=== PATIENT | female | born 1985 | race Two or more races ===

== ENCOUNTER 2021-11-15 15:10 | Outpatient (REF) | payer MEDICAID, SELFPAY ==
--- NOTE | 2021-11-15 15:27 | ECG_ITS ---
Test Reason : MED THERAPY Blood Pressure : / mmHG Vent. Rate : 075 BPM Atrial Rate : 075 BPM P-R Int : 146 ms QRS Dur : 084 ms QT Int : 356 ms P-R-T Axes : 000 036 020 degrees QTc Int : 397 ms Normal sinus rhythm Normal ECG No previous ECGs available Referred By: Court Keys Electronically Signed By:MARIBELL STEARNS MD
[2021-11-15 15:28] LABS: MANUAL DIFF FLAG NO
[2021-11-15 15:39] LABS: Basophils Percent Auto 0.6 % (0-2); Eosinophils Absolute Auto 0.1 X10*3/uL (0.0-0.4); Hematocrit 39.5 % (37.0-47.0); Hemoglobin 13.4 g/dl (12.0-16.0); Imm Gran Abs Auto 0.01 X10*3/uL (0.00-0.03); Imm Gran Pct Auto 0.1 % (0.0-0.4); Lymphocytes Percent Auto 27.6 % (20-40); Mean Corpuscular HGB Conc 33.9 g/dl (31.0-35.0); Mean Corpuscular Hemoglobin 31.3 pg (27.0-33.0); Mean Corpuscular Volume 92.3 fL (80.0-98.0); Mean Platelet Volume 12.7 fL (9.4-12.3); Monocytes Absolute Auto 0.5 X10*3/uL (0.1-1.2); Neutrophils Absolute Auto 4.6 x10*3/uL (2.0-8.3); Neutrophils Percent Auto 63.7 % (45-73); Platelet Count 180 X10*3/uL (160-400); Red Blood Count 4.28 X10*6/uL (4.20-5.50); Red Cell Distribution Width 12.7 % (11.0-16.0); White Blood Count 7.2 X10*3/uL (4.8-10.8)
[2021-11-15 16:02] LABS: Alanine Aminotransferase 16 U/L (0-31); Albumin Level 4.2 g/dL (3.5-5.0); Alkaline Phosphatase 55 U/L (39-117); Anion Gap 10 (12-20); Aspartate Amino Transferase 18 U/L (5-31); Bilirubin Direct 0.2 mg/dL (0.0-0.5); Bilirubin Total 0.4 mg/dL (0.0-1.0); Blood Urea Nitrogen 12 mg/dL (9-16); Calcium 9.1 mg/dL (8.4-10.2); Carbon Dioxide 27 mmol/L (22-29); Chloride 105 mmol/L (96-108); Estimated Glomerular Filt Rate > 60; Glucose Random 100 mg/dL (60-115); Potassium 4.2 mmol/L (3.3-5.1); Sodium 138 mmol/L (135-145); Total Protein 6.9 g/dL (6.5-8.0)
[2021-11-15 16:23] LABS: Free T4 (Free Thyroxine) 0.95 ng/dL (0.71-1.85); Thyroid Stimulating Hormone 1.28 uIU/mL (0.32-4.0)
== END 2021-11-15 15:11 | disposition home or self-care (01) ==
LOC: HO.LAB 15:10
PROVIDERS: Nurse Practitioner Family; PCP Family Medicine; Visit Provider Nurse Practitioner Psychiatric/Mental Health
DX: F33.2 Major depressive disorder, recurrent severe without psychotic features (principal); F41.1 Generalized anxiety disorder
CPT/HCPCS: 36415; 80053; 82248; 84439; 84443; 85025; 93005

== ENCOUNTER 2021-11-23 10:45 | Outpatient (RCR) | payer OTHER, SELFPAY ==
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
--- NOTE | 2021-11-01 16:43 | PC.NURSE ---
Case opened in treatment team.
--- NOTE | 2021-11-02 08:36 | PC.ADMIT ---
Patient is a 36 year old female who uses they/them pronouns and goes by the name of Gian. Patient self referred to PHP d/t increased sxs of depression with passive SI, no plan or intent. Patient also talked about several health issues that are contributing to her symptoms including bouts of vertigo, sciatica, numbness and tingling on right arm and leg (since June), GI issues, and question if she has Tracy's d/o. Patient reports she moved here from [place] and lost her medical providers from [place] as a result. Patient reports that she was seeing a PCP here however she reports they did not believe her regarding her medical complaints and did not think she needed a referral to a neurologist for c/o sciatica and numbness and tingling. Patient stated she was going to physical therapy however the physical therapist stated she needed to see a neurologist and stopped seeing her. Patient reports she is has a new patient appointment with a new PCP in November. Patient also interested in Integrative Medicine in [place], patient has the number to call. Patient did state she thinks a lot of her issues started after she got the second Covid shot. Patient currently lives in [place] with 4 roommates. Patient reports AH of whispers and someone walking. Patient stated she takes Tibetan herbal supplements for her symptoms. Patient is alert and oriented x4. Presents with depressed mood and affect. Medications reconciled with patient. Patient did report she is on inhalers and an Iron supplement. Will call pharmacy to f/u. Emailed patient a copy of her safety plan.
--- NOTE | 2021-11-05 14:55 | HO.PHPPROGNO ---
Subjective Subjective Date of Service: 11/05/21 Reason For Visit: severe depression,anxiety Medical Problems Affecting Mental Status: No Interim History: Describes mood as ?I am okay, I am just really tired ?. Continues with dysphoric mood, anxiety. No SI, no safety concerns at this time. Did not start medications, due to fear of side effects. Is considering starting the medications at this time. Medication Compliance: No Attending Groups: Yes Review of Systems Acute medical concerns: No Medical Review of Systems: unchanged Review of Systems Review of Systems Yes all other systems are reviewed and are negative Constitutional: Reports no additional constitutional complaints Mental Status Exam Mental Status Exam Narrative: NAD. No SI, no safety concern. Patient Appearance: Well Grooomed and Appropriate Patient Orientation: Person, Place, Time and Situation Level of Consciousness: Appropriate Patient Behavior: Appropriate, Cooperative and Good Eye Contact Mood Description: Depressed and Anxious Affect Description: Depressed and Anxious Patient Cognition Impaired: No Ability to Follow Directions: Good Speech Pattern: Clear, Appropriate and Soft-Spoken Memory Description: Intact Hallucinations: None (Did not appear to be responding to any type of internal stimuli.) Delusions: Not Present Perceptual Disturbances: Depersonalization Thought Process: Intact Depressive Symptoms: Increased Anxiety, Difficulty Sleeping, Loss of Int. in Activity, Hopelessness, Feelings of Guilt, Unhappiness, Increased Fatigue and Thoughts of /Suicide Judgement: Fair Assessment & Plan Assessment & Plan (1) Major depressive disorder, recurrent severe without psychotic features: Status: Acute Code(s): F33.2 - Major depressive disorder, recurrent severe without psychotic features Assessment and Plan: Describes mood as ?I am okay, I am just really tired ?. Continues with dysphoric mood, anxiety. No SI, no safety concerns at this time. Did not start medications, due to fear of side effects. We discussed both medications in detail. I recommended trying duloxetine at this time, and hold off on quetiapine for now. They were in agreement with this, as duloxetine does not cause sedation, and also may help with physical symptoms of discomfort/pain. We also discussed herbal treatment THE[place]ORE-e as a possible antidepressant, as patient prefers natural remedies over prescription medications. Patient stated they will read about this further. Otherwise patient has no other concerns at this time. (2) Generalized anxiety disorder: Status: Acute Code(s): F41.1 - Generalized anxiety disorder Assessment and Plan: Continues with some anxiety, is willing to start duloxetine at this time. It was reviewed, including its affects overall with symptoms of anxiety as well as depression, and pain. Plan 1. Continue with current [facility] plan of care. 2. Patient agrees to start duloxetine at this time. 3. Patient will hold off on starting quetiapine at this time. 4. Follow-up as per protocol. Patient educated on: diagnosis, medication risk/benefits and therapeutic strategies Informed Consent: understands Reason for contiued partial hosp. stay Substantial Risk for: harm to self, inability to function, rapid decompensation and med/psych decompensation Certification I certify that partial hospital treatment is medically necessary due to the symptoms and problems resulting from the patient's mental illness and the failure to treat the patient at the partial hospital level of care would likely result in the patient requiring inpatient psychiatric care which could not be prevented at a less intensive level of care. I spent minutes with the patient and/or on the patient floor today, greater than?50% of which was spent counseling/coordinating care. Discharge Plan Discharge Attending provider: Patel Ayala Medications: New duloxetine 20 mg capsule,delayed release(DR/EC) 20 mg PO BID 7 Days Qty: 14 0RF Rx Instructions: Take 1 cap (20mg daily) for 4 days, then take 1 cap (20mg) twice daily. quetiapine 25 mg tablet 25 mg PO BID PRN (Reason: anxiety) Qty: 14 0RF Rx Instructions: Take 1/2 to 1 tab twice daily as needed for anxiety No Action famotidine 20 mg Tablet 20 mg PO BID albuterol sulfate [ProAir HFA] 90 mcg/actuation Hfa Aerosol Inhaler 2 puff INHALATION Q4H PRN (Reason: Shortness Of Breath) fluticasone propionate [Flovent HFA] 110 mcg/actuation Hfa Aerosol Inhaler 2 puff INHALATION BID Telehealth Telehealth Location of provider rendering services: practice address Location of patient: address on file Patient Identification confirmed using: Name, : Yes Telehealth method: video Patient verbally consented to treatment: Yes Patient verbally consented to billing insurance company: Yes Patient informed of any privacy concerns related to visit: Yes Minutes spent on Phone/Video with Pt.: 15
--- NOTE | 2021-11-05 15:17 | PC.NURSE ---
I called and spoke with pt. Reviewed treatment plan. They said the program is going well overall, and that they wish they were participating They said the structure is helpful and they can relate with peers. We discussed aftercare options at length. They are somewhat happy with their new therapist, Salomon, but unsure. They do not have a med provider. We spoke about the possibility of me putting in a referral for a [facility] in able to access a med provider,, and they agreed to think about this. They said they think its also an option to see a med provider at their PCP's office ([facility] in [place]), but that they have seen the med provider there and had a very bad experience with her. We also talked about the possibility of pt asking if her PCP will prescribe, and the possibility of them looking on psychology today's search engine. They said they have looked on this search engine quite a bit. Pt will tentatively discharge on 11/16/21 with a possible step-down to IOP.
--- NOTE | 2021-11-14 14:20 | PC.NURSE ---
LM for pt to check in. Asked pt to pls call.
--- NOTE | 2021-11-14 15:25 | PC.NURSE ---
I received a message from Danika Hickey at [facility] and then called and left a message for pt informing them of their intake appt at [facility] on 11/21/21.
--- NOTE | 2021-11-15 14:20 | PC.NURSE ---
MISAEL for pt. Gave time of intake at [facility] and asked them to pls call.
--- NOTE | 2021-11-15 14:53 | HO.PHPPROGNO ---
Subjective Subjective Date of Service: 11/15/21 Reason For Visit: severe depression,anxiety Medical Problems Affecting Mental Status: No Interim History: Reports ?feeling a little bit better today ?. Continues with dysphoric mood, anxiety. Has had dissociative symptoms recently, numbness, ?I felt blank, not able to connect ?. Stopped Cymbalta, due to exhaustion, tingling sensation. No SI/HI, no safety concerns at this time. Medication Compliance: Yes Side effects from medications: Yes (Reports Cymbalta caused exhaustion, tingling sensation.) Attending Groups: Yes Review of Systems Acute medical concerns: No Medical Review of Systems: unchanged Review of Systems Review of Systems Yes all other systems are reviewed and are negative Constitutional: Reports no additional constitutional complaints Mental Status Exam Mental Status Exam Narrative: NAD. No SI, no safety concern. Patient Appearance: Appropriate Patient Orientation: Person, Place, Time and Situation Level of Consciousness: Appropriate Patient Behavior: Appropriate, Cooperative and Good Eye Contact Mood Description: Depressed and Anxious Affect Description: Depressed and Anxious Patient Cognition Impaired: No Ability to Follow Directions: Good Speech Pattern: Clear and Appropriate Memory Description: Intact Hallucinations: None Delusions: Not Present Perceptual Disturbances: Depersonalization Thought Process: Intact Thought Content: positive for Intact Depressive Symptoms: Increased Anxiety, Loss of Int. in Activity, Feelings of Guilt, Unhappiness and Increased Fatigue Judgement: Fair Assessment & Plan Assessment & Plan (1) Major depressive disorder, recurrent severe without psychotic features: Status: Acute Code(s): F33.2 - Major depressive disorder, recurrent severe without psychotic features Assessment and Plan: Reports ?feeling a little bit better today ?. Continues with dysphoric mood, anxiety. Has had dissociative symptoms recently, numbness, ?I felt blank, not able to connect ?. Feels these have subsided somewhat since returning to her home yesterday after house pet caretaker. Stopped Cymbalta, due to exhaustion, tingling sensation. Expressed some concern, as they would really prefer to take any antidepressant at this time. We discussed various medications. Patient had been considering Saint Rafael's Wort, omega-3 fatty acids, among other natural supplements. They were concerned however that these may not have as much effect on symptoms of depression and anxiety as a prescribed medication. They report they have had success with Wellbutrin in the past, but that the dose had been increased, and they experienced side effects with the higher dose, and stop taking it. We discussed trialing a low-dose at this time. Patient also continues to have quetiapine, has not yet utilized it, was waiting until they were home in her own house before trying it. We discussed both medications in detail, including risks and benefits, side effects, alternatives. Agreeable to trying Wellbutrin at this time. No SI/HI, no safety concerns at this time. (2) Generalized anxiety disorder: Status: Acute Code(s): F41.1 - Generalized anxiety disorder Plan 1. Continue with current [facility] plan of care. 2. Discontinue Cymbalta. 3. Start bupropion SR 100 mg daily. 4. Continue with p.r.n. quetiapine as needed. 5. Follow up as per protocol. Patient educated on: diagnosis, medication risk/benefits and therapeutic strategies Informed Consent: understands Reason for contiued partial hosp. stay Substantial Risk for: harm to self, inability to function, rapid decompensation and med/psych decompensation Certification I certify that partial hospital treatment is medically necessary due to the symptoms and problems resulting from the patient's mental illness and the failure to treat the patient at the partial hospital level of care would likely result in the patient requiring inpatient psychiatric care which could not be prevented at a less intensive level of care. I spent minutes with the patient and/or on the patient floor today, greater than?50% of which was spent counseling/coordinating care. Discharge Plan Discharge Attending provider: Patel Ayala Additional Instructions: Intake appointment at [facility] ([facility]), in-person at [address] [place] [address] in [place], [place] at 10am on November 21 with therapist Janie Huang. Please arrive 15 minutes early. Medication management evaluation appointment at [facility] ([facility]), in-person at [address] [place] [address] in [place], [place] at 9am on December 19 with med provider Emmanuelle Wynn. Please arrive 15 minutes early for this appt. The phone number for [facility] in [place] is [phone]. Medications: New quetiapine 25 mg tablet 25 mg PO BID PRN (Reason: anxiety) Qty: 14 0RF Rx Instructions: Take 1/2 to 1 tab twice daily as needed for anxiety bupropion HCl [Wellbutrin SR] 100 mg tablet sustained-release 12 hr 100 mg PO DAILY 14 Days Qty: 14 0RF No Action famotidine 20 mg Tablet 20 mg PO BID albuterol sulfate [ProAir HFA] 90 mcg/actuation Hfa Aerosol Inhaler 2 puff INHALATION Q4H PRN (Reason: Shortness Of Breath) fluticasone propionate [Flovent HFA] 110 mcg/actuation Hfa Aerosol Inhaler 2 puff INHALATION BID Stand Alone Forms: Patient Portal Discharge page Telehealth Telehealth Location of provider rendering services: practice address Location of patient: address on file Patient Identification confirmed using: Name, : Yes Telehealth method: video Patient verbally consented to treatment: Yes Patient verbally consented to billing insurance company: Yes Patient informed of any privacy concerns related to visit: Yes Minutes spent on Phone/Video with Pt.: 15
--- NOTE | 2021-11-19 15:45 | P.PNPSP_ITS ---
Subjective Subjective Date of Service: 11/19/21 Reason For Visit: severe depression,anxiety Medical Problems Affecting Mental Status: No Interim History: Describes mood as ?not great?. Continues with dysphoric mood, anxiety. Has not yet started medications. Had lab work completed. Medication Compliance: No Side effects from medications: No (n/a) Attending Groups: Yes Review of Systems Acute medical concerns: No Medical Review of Systems: unchanged Review of Systems Constitutional: Reports no additional constitutional complaints Mental Status Exam Mental Status Exam Narrative: NAD. No SI, no safety concern. Patient Appearance: Appropriate Patient Orientation: Person, Place, Time and Situation Level of Consciousness: Appropriate Patient Behavior: Appropriate, Cooperative and Good Eye Contact Mood Description: Depressed and Anxious Affect Description: Depressed and Anxious Patient Cognition Impaired: No Ability to Follow Directions: Good Speech Pattern: Clear, Appropriate and Soft-Spoken Memory Description: Intact Hallucinations: None Delusions: Not Present Perceptual Disturbances: Depersonalization Thought Process: Intact Thought Content: positive for Intact Depressive Symptoms: Increased Anxiety, Crying Spells, Loss of Int. in Activity, Feelings of Guilt, Unhappiness, Increased Fatigue and Difficulty Concentrating Judgement: Fair Assessment & Plan Assessment & Plan (1) Major depressive disorder, recurrent severe without psychotic features: Status: Acute Code(s): F33.2 - Major depressive disorder, recurrent severe without psychotic features Assessment and Plan: Patient was upset at start of visit, due to having difficulties at lab. She states that she had bleeding, and that it was extremely uncomfortable. She states that she was using a warm compress to help with that. We did review lab results. Patient states that she has low fair a 10, and that she was supposed to receive iron infusions in [place], but that her providers here are not agreeable to doing this at this time. She states that she has been taking iron supplements for years. We reviewed low ferritin levels and its relation to mental health disorders, including symptoms of depression and anxiety. She was encouraged to take supplements as recommended by her primary care provider. Patient describes mood as ?not great?. Denies SI, HI, no safety concern at this time. We reviewed lab work results, including MPV of 12.7, anion gap 10. She states that these labs are always at these levels, and that her medical providers in [place] were aware. Patient has still not picked up medications from pharmacy. We discussed her history of seizures as a young child, after experiencing a concussion. She states she has taken Wellbutrin in her 20s, with no seizure activity. She states that she would like to start it, as it was helpful in the past. Patient then reports that a provider in [place] last year diagnosed her with bipolar disorder, and started her with lithium. She states that she did not take the lithium for long. Week completed a mood disorder questionnaire (MDQ) during this visit. She answered affirmative to 8 questions under 1. When asked if they had ever occur during the same time, she stated yes. She denies any family history of bipolar disorder. We discussed types of bipolar disorder, length of days regarding hypomanic symptoms, etc.. She states she has never experienced a full manic episode, but has had periods of 4 or 5 days at a time with hypomanic symptoms. She states that she tends to be more often depressed rather than hypomanic. We discussed medication options. I did recommend that she start Lamictal. We discussed the risks and benefits of Lamictal, adverse reactions both serious and common, and alternative treatment recommendations. She stated that she did understand, but she would like to read about the medication herself. She stated that she would like to let me know tomorrow if she is ready to start Lamictal. She would like to start Wellbutrin tomorrow morning. (2) Generalized anxiety disorder: Status: Acute Code(s): F41.1 - Generalized anxiety disorder Plan 1. Continue with current [facility] plan of care. 2. 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 3. Patient is considering trial of Lamictal. 4. Follow-up as per protocol. Patient educated on: diagnosis, medication risk/benefits and therapeutic strategies Informed Consent: understands Reason for contiued partial hosp. stay Substantial Risk for: inability to function, rapid decompensation and med/psych decompensation Certification I certify that partial hospital treatment is medically necessary due to the symptoms and problems resulting from the patient's mental illness and the failure to treat the patient at the partial hospital level of care would likely result in the patient requiring inpatient psychiatric care which could not be prevented at a less intensive level of care. I spent minutes with the patient and/or on the patient floor today, greater than?50% of which was spent counseling/coordinating care. Discharge Plan Discharge Attending provider: Patel Ayala Additional Instructions: Intake appointment at [facility] ([facility]), in-person at [address] in [place], [place] at 10am on November 21 with therapist Janie Huang. Please arrive 15 minutes early. Medication management evaluation appointment at [facility] ([facility]), in-person at [address] [facility] in [place], [place] at 9am on December 19 with med provider Emmanuelle Wynn. Please arrive 15 minutes early for this appt. The phone number for [facility] in [place] is [phone]. Medications: New quetiapine 25 mg tablet 25 mg PO BID PRN (Reason: anxiety) Qty: 14 0RF Rx Instructions: Take 1/2 to 1 tab twice daily as needed for anxiety bupropion HCl [Wellbutrin SR] 100 mg tablet sustained-release 12 hr 100 mg PO DAILY 14 Days Qty: 14 0RF No Action famotidine 20 mg Tablet 20 mg PO BID albuterol sulfate [ProAir HFA] 90 mcg/actuation Hfa Aerosol Inhaler 2 puff INHALATION Q4H PRN (Reason: Shortness Of Breath) fluticasone propionate [Flovent HFA] 110 mcg/actuation Hfa Aerosol Inhaler 2 puff INHALATION BID Stand Alone Forms: Patient Portal Discharge page Telehealth Telehealth Location of provider rendering services: practice address Location of patient: address on file Patient Identification confirmed using: Name, : Yes Telehealth method: video Patient verbally consented to treatment: Yes Patient verbally consented to billing insurance company: Yes Patient informed of any privacy concerns related to visit: Yes Minutes spent on Phone/Video with Pt.: 20
--- NOTE | 2021-11-21 14:23 | P.PNPSP_ITS ---
Subjective Subjective Reason For Visit: severe depression,anxiety Assessment & Plan Certification I certify that partial hospital treatment is medically necessary due to the symptoms and problems resulting from the patient's mental illness and the failure to treat the patient at the partial hospital level of care would likely result in the patient requiring inpatient psychiatric care which could not be prevented at a less intensive level of care. I spent minutes with the patient and/or on the patient floor today, greater than?50% of which was spent counseling/coordinating care. Discharge Plan Discharge Attending provider: Patel Ayala Additional Instructions: Appointment at [facility] ([facility]), in-person at [address] [place] [address] in [place], [place] at 10am on November 28 with therapist Janie Huang. Please arrive 15 minutes early. Medication management evaluation appointment at [facility] ([facility]), in-person at [address] [place] [address] in [place], [place] at 9am on December 19 with med provider Emmanuelle Wynn. Please arrive 15 minutes early for this appt. The phone number for [facility] in [place] is [phone]. Medications: New quetiapine 25 mg tablet 25 mg PO BID PRN (Reason: anxiety) Qty: 14 0RF Rx Instructions: Take 1/2 to 1 tab twice daily as needed for anxiety bupropion HCl [Wellbutrin SR] 100 mg tablet sustained-release 12 hr 100 mg PO DAILY 14 Days Qty: 14 0RF No Action famotidine 20 mg Tablet 20 mg PO BID albuterol sulfate [ProAir HFA] 90 mcg/actuation Hfa Aerosol Inhaler 2 puff INHALATION Q4H PRN (Reason: Shortness Of Breath) fluticasone propionate [Flovent HFA] 110 mcg/actuation Hfa Aerosol Inhaler 2 puff INHALATION BID Stand Alone Forms: Patient Portal Discharge page
--- NOTE | 2021-11-23 18:05 | PC.NURSE ---
Discharge Note: Patient discharged from [facility] today, 11/23/2021. Patient discharge routine. Patient states she is ready for discharge. Patient denies SI/HI. Patient states good understanding of discharge medications use and frequency. Patient reports intermittent change in sensation above left eye. No pain no changes in vision. Patient reports she has a history of intermittent sensation changes in extremities. Patient recently started on Wellbutrin and states she has taken it before without any side effects. Discussed with Cici Juarez NP, reported to TITLE CURATOR patient's statements and that patient was on day 2 of Wellbutrin 100mg daily. Per TITLE CURATOR instruction if sympton worsens patient should see outside provider. Patient is seen by Dr Moni Pryor as her PCP and states she will make an appointment with her office. She also has an appointment later in month with a new medication prescriber. Discharge medication list faxed to out patient providers. Patient verbalizes understanding of discharge plan.
== END 2021-11-23 23:59 | disposition home or self-care (01) ==
LOC: HO.PHPA 10:45
PROVIDERS: Visit Provider Psychiatry & Neurology Psychiatry
DX: F33.2 Major depressive disorder, recurrent severe without psychotic features (principal); F41.1 Generalized anxiety disorder
CPT/HCPCS: 90791; 90853